=== PATIENT | female | born 1950 | race Hispanic/Latino ===

== ENCOUNTER 2018-03-06 07:23 | Day surgery (SDC) | payer OTHER ==
--- OUTSIDE RECORDS SUMMARY | 2018-03-06 07:27 | XMS REPORT ---
:1950 Author Organization [employer] Care Team Providers Name Role Phone Tomasz Dahl Provider Role Unavailable Allergies, Adverse Reactions, Alerts Substance Reaction Event Type N.K.D.A. 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
[2018-03-06] MEDS ORDERED: Ringers Lactate 1,000 ML IV ONE (07:34)
[2018-03-06] MEDS ORDERED: PROPOFOL 200 MG/20 ML VIAL IV ONE (08:25)
[2018-03-06] MEDS ORDERED: LIDOCAINE 1% MPF 5 ML VIAL ONE (08:25)
--- NOTE | 2018-03-06 08:57 | ENDO RPT ---
[address], [address] COLONOSCOPY PROCEDURE REPORT EXAM DATE: 03/06/2018 PATIENT NAME: Lori Grady MR #: [id number] BIRTHDATE: 1950 ATTENDING: Tomasz Dahl DR STATUS: outpatient [employer] INSPECTOR: Skylar Valdes RN and Edinson Alexis [facility] INDICATIONS: The patient is a 67 yr old Female here for a colonoscopy due to colon cancer screening PROCEDURE PERFORMED: Colonoscopy with biopsy - cold polypectomy MEDICATIONS: Per Anesthesia. ESTIMATED BLOOD LOSS: None CONSENT: The patient understands the risks and benefits of the procedure and understands that these risks include, but are not limited to: sedation, allergic reaction, infection, perforation and/or bleeding. Alternative means of evaluation and treatment include, among others: physical exam, x-rays, and/or surgical intervention. The patient elects to proceed with this endoscopic procedure. DESCRIPTION OF PROCEDURE: During intra-op preparation period all mechanical medical equipment was checked for proper function. Hand hygiene and appropriate measures for infection prevention was taken. Procedure, possible complications, alternatives including, but not limited to possibility of bleeding, perforation, tear, infection, sepsis, need for surgery, need for blood transfusion, were explained to the patient. After the risks, benefits and alternatives of the procedure were thoroughly explained, Informed consent was verified, confirmed and timeout was successfully executed by the treatment team. The patient was placed in the left lateral position. A digital rectal exam was performed and revealed internal hemorrhoids. After appropriate level of anesthesia, the scope was passed. The [id number] ([id number]) endoscope was introduced through the anus and advanced to the cecum, which was identified by both the appendix and ileocecal valve. The quality of the prep was fair. The instrument was then slowly withdrawn as the colon was fully examined. Scope withdrawal time was 9 minutes. COLON FINDINGS: Mild diverticulosis was noted in the sigmoid colon and left colon. No bleeding was noted from the diverticulosis. A diminutive smooth sessile polyp was found in the sigmoid colon. A biopsy was performed using cold forceps. Sample was obtained and sent to histology. Small internal hemorrhoids were found. Retroflexed views revealed no abnormalities. The scope was then completely withdrawn from the patient and the procedure terminated. ADVERSE EVENTS: There were no complications. IMPRESSIONS: 1. Mild diverticulosis was noted in the sigmoid colon and left colon 2. Diminutive sessile polyp was found in the sigmoid colon; biopsy was performed using cold forceps 3. Small internal hemorrhoids RECOMMENDATIONS: 1. avoid NSAIDS for 2 weeks 2. await biopsy results 3. follow-up: office 2 week(s) 4. yearly hemoccult starting in 4 years 5. low fiber / diverticular diet RECALL: Return in 5 year(s) for Colonoscopy, pending biopsy results. Tomasz Dahl DR eSigned: Tomasz Dahl DR 03/06/2018 8:57 AM cc: CPT CODES: ICD9 CODES: PATIENT NAME: Mitch saraLori aquino MR#: [id number]
== END 2018-03-06 09:42 | disposition home or self-care (01) ==
LOC: OR 07:23
PROVIDERS: ATTEND Surgery
PROC: 0DBN8ZX Excision of Sigmoid Colon, Via Natural or Artificial Opening Endoscopic, Diagnostic (ICD-10-PCS; principal; 2018-03-06 08:30)
DX: Z12.11 Encounter for screening for malignant neoplasm of colon (principal); K63.5 Polyp of colon; K57.30 Diverticulosis of large intestine without perforation or abscess without bleeding; K64.8 Other hemorrhoids; E78.5 Hyperlipidemia, unspecified; K21.9 Gastro-esophageal reflux disease without esophagitis; M19.90 Unspecified osteoarthritis, unspecified site; E78.2 Mixed hyperlipidemia; N32.81 Overactive bladder; F32.9 Major depressive disorder, single episode, unspecified; Z90.49 Acquired absence of other specified parts of digestive tract; Z80.41 Family history of malignant neoplasm of ovary; Z83.3 Family history of diabetes mellitus
CPT/HCPCS: 88305

== ENCOUNTER 2022-11-01 12:47 | Emergency (ER) | payer OTHER ==
--- OUTSIDE RECORDS SUMMARY | 2022-11-01 12:51 | XMS REPORT | Continuity of Care Document ---
:1950 Author Organization [facility] t Address [address] [place] [address] [address] [place] [address] Care Team Providers Name Role Phone Sarwat Riddle Attending Clinician Unavailable Payers Payer Name Policy Type Policy Number Effective Date Expiration Date S ource MEDICARE MB [id number] 2015 [facility] NOVITAS 00:00:00 [facility] [employer] C1 [id number] 2019 [facility] [place] ing Medicare 00:00:00 [facility] Problems Condition Condition Condition Status Onset Resolution Last Treating Co mments Source Name Details Category Date Date Treatment Clinician Date Incontinen Urinary Problem Comm on ce of incontinen [facility] urine ce, - [facility] Overactive Overactive Problem C ommon bladder bladder [facility] [id number] Menopausal Problem Co mmon flushing [facility] [id number] Current Problem 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 is without [facility] fracture [id number] Adult BMI Problem Com mon 35.0-35.9 Spirit kg/sq [facility] [id number] Vitamin D Problem Comm on deficiency [facility] disease [facility] Allergies, Adverse Reactions, Alerts This patient has no known allergies or adverse reactions. Social History Social Habit Start Date Stop Date Quantity Comments Source History of Tobacco Use Co mmon [facility] Sex Assigned At Com mon [facility] Smoking Status Start Date Stop Date Source Never Smoker Common [facility] Medications Ordered Filled Start Stop Current Ordering Indication Dosage Frequency Signature Comments Components Source Medication Medication Date Date Medication? Clinician (SIG) Name Name Aron Sharp 0 No Common 3-11 Spirit 00:00: - [facility] Prolia Prolia 2020-0 No Common 3-11 [facility] 00:00: - [facility] Prolia Prolia 2020-0 No Common 3-11 [facility] 00:00: - [facility] Prolia Prolia 2020-0 No Common 3-11 Spirit 00:00: - [facility] Prolia Prolia 2020-0 No Common 3-11 Spirit 00:00: - [facility] Prolia Prolia 2020-0 No Common 3-11 Spirit 00:00: - [facility] Prolia Prolia 2020-0 No Common 3-11 Spirit 00:00: - [facility] Prolia Prolia 2020-0 No 60mg Common 07-26 Spirit 00:00: - [facility] Prolia Prolia 2020-0 No 60mg Common 07-26 Spirit 00:00: - [facility] Prolia Prolia 2020-0 No 60mg Common 07-26 Spirit 00:00: - [facility] Prolia Prolia 2020-0 No 60mg Common 07-26 Spirit 00:00: - [facility] 00 [facility] Prolia Prolia 2020-0 No 60mg Common 07-26 Spirit 00:00: - [facility] 00 [facility] Prolia Prolia 2020-0 No 60mg Common 07-26 [facility] 00:00: - [facility] 00 [facility] Prolia Prolia 2020-0 No 60mg Common 07-26 [facility] 00:00: - [facility] 00 [facility] Trazodone Trazodone 2020-0 Yes Sarwat 1 tablet Common HCl HCl 02-23 Riddle at bedtime [facility] 00:00: - [facility] 00 [facility] Prolia Prolia 2020-0 No 60mg Common 01-19 Spirit 00:00: - [facility] 00 [facility] Prolia Prolia 2020-0 No 60mg Common 01-19 Spirit 00:00: - [facility] 00 [facility] Prolia Prolia 2020-0 No 60mg Common 01-19 Spirit 00:00: - [facility] Prolia Prolia 2020-0 No 60mg Common 01-19 Spirit 00:00: - [facility] 00 [facility] Prolia Prolia 2020-0 No 60mg Common 01-19 Spirit 00:00: - [facility] 00 [facility] Prolia Prolia 2020-0 No 60mg Common 01-19 Spirit 00:00: - [facility] 00 [facility] Prolia Prolia 2020-0 No 60mg Common 01-19 [facility] 00:00: - [facility] 00 [facility] Vitamin D3 Vitamin D3 2020-0 2020- No Sarwat 1 capsule Common 12-16 Riddle [facility] 00:00: 00:00 - [facility]I 00 :00 [facility] Prolia Prolia 2019-0 No 60mg Common 07-22 Spirit 00:00: - [facility] 00 [facility] Prolia Prolia 2019-0 No 60mg Common 07-22 Spirit 00:00: - [facility] 00 [facility] Prolia Prolia 2019-0 No 60mg Common 07-22 Spirit 00:00: - [facility] 00 [facility] Prolia Prolia 2019-0 No 60mg Common 07-22 Spirit 00:00: - [facility] 00 [facility] Prolia Prolia 2019-0 No 60mg Common 07-22 Spirit 00:00: - [facility] 00 [facility] Prolia Prolia 2019-0 No 60mg Common 07-22 00:00: - [facility] Prolia Prolia 2019-0 No 60mg Common 07-22 00:00: - [facility] Kenalog Kenalog 2019-0 No 40mg Common (Triamcinol (Triamcinol 7-18 S pirit one) one) 00:00: - [facility] Kenalog Kenalog 2019-0 No 40mg Common (Triamcinol (Triamcinol 7-18 S pirit one) one) 00:00: - [facility] Kennoris Kenalog 2019-0 No 40mg Common (Triamcinol (Triamcinol 7-18 S pirit one) one) 00:00: - [facility] Kennoris Kenalog 2019-0 No 40mg Common (Triamcinol (Triamcinol 7-18 S pirit one) one) 00:00: - [facility] Kennoris Kenalog 2019-0 No 40mg Common (Triamcinol (Triamcinol 7-18 S pirit one) one) 00:00: - [facility] Kennoris Kenalog 2019-0 No 40mg [facility] (Triamcinol (Triamcinol 7-18 S pirit one) one) 00:00: - [facility] Kennoris Kenalog 2019-0 No 40mg Common (Triamcinol (Triamcinol 7-18 S pirit one) one) 00:00: - [facility] Prolia Prolia 2019-0 Yes Sarwat 60 mg Common 03-18 Riddle [facility] 00:00: - [facility] Zoloft Zoloft Yes Asrwat 1 tablet Commo n Riddle [facility] Calcium 500 Calcium 500 Yes Sarwat 1 tablet Common + D + D Riddle with food [facility] Fish Oil Fish Oil Yes Sarwat not Commo n Riddle defined Spirit [facility] Prolia 60 Prolia 60 No MG/ML MG/ML Vitamin B Vitamin B No Complex Complex Vitamin D3 Vitamin D3 No 1{capsu 09132 UNIT 30917 UNIT le} Zoloft 100 Zoloft 100 No MG MG Sertraline Sertraline No HCl 100 MG HCl 100 MG Fish Oil Fish Oil No Tumersaid Tumersaid No Calcium 500 Calcium 500 No 1{table QD + D 500-125 + D 500-125 t_with_ MG-UNIT MG-UNIT food} traZODone traZODone No 1{table QD HCl 50 MG HCl 50 MG t_at_be dtime} Zoloft 100 Zoloft 100 No 1{table QD MG MG t} traZODone traZODone No HCl 50 MG HCl 50 MG traZODone traZODone No traZODone HCl 50 MG HCl 50 MG HCl 50 MG Prolia 60 Prolia 60 No Prolia 60 MG/ML MG/ML MG/ML Vitamin D3 Vitamin D3 No 1{capsu Vitamin D3 87407 UNIT 10196 UNIT le} 44187 UNIT traZODone traZODone No 1{table QD traZODone HCl 50 MG HCl 50 MG t_at_be HCl 50 MG dtime} Calcium 500 Calcium 500 No 1{table QD Calcium + D 500-125 + D 500-125 t_with_ 500 + D MG-UNIT MG-UNIT food} 500-125 MG-UNIT Zoloft 100 Zoloft 100 No 1{table QD Zoloft 100 MG MG t} MG Fish Oil Fish Oil No Fish Oil Zoloft 100 Zoloft 100 No Zoloft 100 MG MG MG Sertraline Sertraline No Sertraline HCl 100 MG HCl 100 MG HCl 100 MG Tumersaid Tumersaid No Tumersaid Vitamin B Vitamin B No Vitamin B Complex Complex Complex traZODone traZODone No traZODone HCl 50 MG HCl 50 MG HCl 50 MG Prolia 60 Prolia 60 No Prolia 60 MG/ML MG/ML MG/ML Vitamin D3 Vitamin D3 No 1{capsu Vitamin D3 50543 UNIT 27533 UNIT le} 66736 UNIT traZODone traZODone No 1{table QD traZODone HCl 50 MG HCl 50 MG t_at_be HCl 50 MG dtime} Calcium 500 Calcium 500 No 1{table QD Calcium + D 500-125 + D 500-125 t_with_ 500 + D MG-UNIT MG-UNIT food} 500-125 MG-UNIT Zoloft 100 Zoloft 100 No 1{table QD Zoloft 100 MG MG t} MG Fish Oil Fish Oil No Fish Oil Zoloft 100 Zoloft 100 No Zoloft 100 MG MG MG Sertraline Sertraline No Sertraline HCl 100 MG HCl 100 MG HCl 100 MG Tumersaid Tumersaid No Tumersaid Vitamin B Vitamin B No Vitamin B Complex Complex Complex traZODone traZODone No traZODone HCl 50 MG HCl 50 MG HCl 50 MG Prolia 60 Prolia 60 No Prolia 60 MG/ML MG/ML MG/ML Vitamin D3 Vitamin D3 No 1{capsu Vitamin D3 56262 UNIT 86980 UNIT le} 42278 UNIT traZODone traZODone No 1{table QD traZODone HCl 50 MG HCl 50 MG t_at_be HCl 50 MG dtime} Calcium 500 Calcium 500 No 1{table QD Calcium + D 500-125 + D 500-125 t_with_ 500 + D MG-UNIT MG-UNIT food} 500-125 MG-UNIT Zoloft 100 Zoloft 100 No 1{table QD Zoloft 100 MG MG t} MG Fish Oil Fish Oil No Fish Oil Zoloft 100 Zoloft 100 No Zoloft 100 MG MG MG Sertraline Sertraline No Sertraline HCl 100 MG HCl 100 MG HCl 100 MG Tumersaid Tumersaid No Tumersaid Vitamin B Vitamin B No Vitamin B Complex Complex Complex traZODone traZODone No 1{table QD traZODone HCl 50 MG HCl 50 MG t_at_be HCl 50 MG dtime} Sertraline Sertraline No Sertraline HCl 100 MG HCl 100 MG HCl 100 MG Fish Oil Fish Oil No Fish Oil Zoloft 100 Zoloft 100 No 1{table QD Zoloft 100 MG MG t} MG Calcium 500 Calcium 500 No 1{table QD Calcium + D 500-125 + D 500-125 t_with_ 500 + D MG-UNIT MG-UNIT food} 500-125 MG-UNIT Zoloft 100 Zoloft 100 No Zoloft 100 MG MG MG traZODone traZODone No traZODone HCl 50 MG HCl 50 MG HCl 50 MG Vitamin B Vitamin B No Vitamin B Complex Complex Complex Vitamin D3 Vitamin D3 No 1{capsu Vitamin D3 89899 UNIT 86993 UNIT le} 68438 UNIT Prolia 60 Prolia 60 No Prolia 60 MG/ML MG/ML MG/ML Tumersaid Tumersaid No Tumersaid traZODone traZODone No 1{table QD traZODone HCl 50 MG HCl 50 MG t_at_be HCl 50 MG dtime} Sertraline Sertraline No Sertraline HCl 100 MG HCl 100 MG HCl 100 MG Fish Oil Fish Oil No Fish Oil Zoloft 100 Zoloft 100 No 1{table QD Zoloft 100 MG MG t} MG Calcium 500 Calcium 500 No 1{table QD Calcium + D 500-125 + D 500-125 t_with_ 500 + D MG-UNIT MG-UNIT food} 500-125 MG-UNIT Zoloft 100 Zoloft 100 No Zoloft 100 MG MG MG traZODone traZODone No traZODone HCl 50 MG HCl 50 MG HCl 50 MG Vitamin B Vitamin B No Vitamin B Complex Complex Complex Vitamin D3 Vitamin D3 No 1{capsu Vitamin D3 32041 UNIT 03090 UNIT le} 50472 UNIT Prolia 60 Prolia 60 No Prolia 60 MG/ML MG/ML MG/ML Tumersaid Tumersaid No Tumersaid Vitamin D3 Vitamin D3 No 1{capsu Vitamin D3 86595 UNIT 65394 UNIT le} 34880 UNIT Fish Oil Fish Oil No Fish Oil traZODone traZODone No traZODone HCl 50 MG HCl 50 MG HCl 50 MG Calcium 500 Calcium 500 No 1{table QD Calcium + D 500-125 + D 500-125 t_with_ 500 + D MG-UNIT MG-UNIT food} 500-125 MG-UNIT Zoloft 100 Zoloft 100 No Zoloft 100 MG MG MG Zoloft 100 Zoloft 100 No 1{table QD Zoloft 100 MG MG t} MG Vitamin B Vitamin B No Vitamin B Complex Complex Complex Sertraline Sertraline No Sertraline HCl 100 MG HCl 100 MG HCl 100 MG Prolia 60 Prolia 60 No Prolia 60 MG/ML MG/ML MG/ML Tumersaid Tumersaid No Tumersaid Sertraline Sertraline No Sertraline HCl 100 MG HCl 100 MG HCl 100 MG Vitamin D3 Vitamin D3 No 1{capsu Vitamin D3 75969 UNIT 41385 UNIT le} 80457 UNIT traZODone traZODone No 1{table QD traZODone HCl 50 MG HCl 50 MG t_at_be HCl 50 MG dtime} Prolia 60 Prolia 60 No Prolia 60 MG/ML MG/ML MG/ML Vitamin B Vitamin B No Vitamin B Complex Complex Complex Zoloft 100 Zoloft 100 No 1{table QD Zoloft 100 MG MG t} MG Fish Oil Fish Oil No Fish Oil Zoloft 100 Zoloft 100 No Zoloft 100 MG MG MG traZODone traZODone No traZODone HCl 50 MG HCl 50 MG HCl 50 MG Tumersaid Tumersaid No Tumersaid Calcium 500 Calcium 500 No 1{table QD Calcium + D 500-125 + D 500-125 t_with_ 500 + D MG-UNIT MG-UNIT food} 500-125 MG-UNIT Calcium 500 Calcium 500 No 1{table QD Calcium + D 500-125 + D 500-125 t_with_ 500 + D MG-UNIT MG-UNIT food} 500-125 MG-UNIT Vitamin B Vitamin B No Vitamin B Complex Complex Complex Fish Oil Fish Oil No Fish Oil Vitamin D3 Vitamin D3 No 1{capsu Vitamin D3 17926 UNIT 92900 UNIT le} 86235 UNIT Zoloft 100 Zoloft 100 No Zoloft 100 MG MG MG traZODone traZODone No 1{table QD traZODone HCl 50 MG HCl 50 MG t_at_be HCl 50 MG dtime} Zoloft 100 Zoloft 100 No 1{table QD Zoloft 100 MG MG t} MG Prolia 60 Prolia 60 No Prolia 60 MG/ML MG/ML MG/ML traZODone traZODone No traZODone HCl 50 MG HCl 50 MG HCl 50 MG Tumersaid Tumersaid No Tumersaid Calcium 500 Calcium 500 No 1{table QD Calcium + D 500-125 + D 500-125 t_with_ 500 + D MG-UNIT MG-UNIT food} 500-125 MG-UNIT Fish Oil Fish Oil No Fish Oil Vitamin D3 Vitamin D3 No 1{capsu Vitamin D3 96795 UNIT 11723 UNIT le} 78595 UNIT Zoloft 100 Zoloft 100 No Zoloft 100 MG MG MG Vitamin B Vitamin B No Vitamin B Complex Complex Complex Sertraline Sertraline No Sertraline HCl 100 MG HCl 100 MG HCl 100 MG Prolia 60 Prolia 60 No Prolia 60 MG/ML MG/ML MG/ML traZODone traZODone No traZODone HCl 50 MG HCl 50 MG HCl 50 MG Tumersaid Tumersaid No Tumersaid Immunizations Ordered Immunization Filled Immunization Date Status Commen ts Source Name Name Aron Sharp 2021-01-25 Completed [facility] 14:43:00 [facility] Aron Sharp 2020-07-26 Completed [facility] 13:30:00 [facility] Aron Sharp 2020-01-20 Completed [facility] 14:23:00 [facility] Aron Sharp 2019-07-22 Completed [facility] 14:47:00 [facility] Kenalog Kenalog 2019-06-03 Completed [facility] (Triamcinolone) (Triamcinolone) 11:31:00 [facility] Prevnar 13 Prevnar 2018-12-17 Completed [facility] -Pneumonia Vaccine -Pneumonia Vaccine 10:54:00 [facility] Prevnar 13 Prevnar 2018-12-17 Completed [facility] -Pneumonia Vaccine -Pneumonia Vaccine 10:54:00 [facility] Prevnar 13 Prevnar 13 2018-12-17 Completed [facility] -Pneumonia Vaccine -Pneumonia Vaccine 10:54:00 [facility] Prevnar 13 Prevnar 13 2018-12-17 Completed [facility] -Pneumonia Vaccine -Pneumonia Vaccine 10:54:00 [facility] Prevnar 13 Prevnar 13 2018-12-17 Completed [facility] -Pneumonia Vaccine -Pneumonia Vaccine 10:54:00 [facility] Prevnar 13 Prevnar 13 2018-12-17 Completed [facility] -Pneumonia Vaccine -Pneumonia Vaccine 10:54:00 [facility] Prevnar 13 Prevnar 13 2018-12-17 Completed [facility] -Pneumonia Vaccine -Pneumonia Vaccine 10:54:00 [facility] Prevnar 13 Prevnar 13 2018-12-17 Completed [facility] -Pneumonia Vaccine -Pneumonia Vaccine 10:54:00 [facility] Prevnar 13 Prevnar 13 2018-12-17 Completed [facility] -Pneumonia Vaccine -Pneumonia Vaccine 10:54:00 [facility] Prevnar 13 Prevnar 13 2018-12-17 Completed [facility] -Pneumonia Vaccine -Pneumonia Vaccine 10:54:00 [facility] Prevnar 13 Prevnar 2018-12-17 Completed [facility] -Pneumonia Vaccine -Pneumonia Vaccine 00:00:00 - [facility] Zostavax Zostavax 2018-01-27 Completed [facility] 10:49:00 - [facility] Zostavax Zostavax 2018-01-27 Completed [facility] 10:49:00 - [facility] Zostavax Zostavax 2018-01-27 Completed [facility] 10:49:00 - [facility] Zostavax Zostavax 2018-01-27 Completed [facility] 10:49:00 - [facility] Zostavax Zostavax 2018-01-27 Completed [facility] 10:49:00 - [facility] Zostavax Zostavax 2018-01-27 Completed [facility] 10:49:00 - [facility] Zostavax Zostavax 2018-01-27 Completed [facility] 10:49:00 - [facility] Zostavax Zostavax 2018-01-27 Completed [facility] 10:49:00 - [facility] Zostavax Zostavax 2018-01-27 Completed [facility] 10:49:00 - [facility] Zostavax Zostavax 2018-01-27 Completed [facility] 10:49:00 [facility] Vital Signs Vital Name Observation Time Observation Value Comments Source height 2022-10-15 09:40:00 61 [in_i] [facility] weight 2022-10-15 09:40:00 180.7 [lb_av] [facility] temperature 2022-10-15 09:40:00 97.6 [degF] [facility] bmi 2022-10-15 09:40:00 34.14 kg/m2 [facility] oximetry 2022-10-15 09:40:00 97 % [facility] respiratory rate 2022-10-15 09:40:00 17 /min Comm on [facility] blood pressure 2022-10-15 09:40:00 116 mm[Hg] [facility] systolic [facility] blood pressure 2022-10-15 09:40:00 67 mm[Hg] [facility] - diastolic [facility] height 2022-06-12 09:10:00 61 [in_i] Common [facility] weight 2022-06-12 09:10:00 181.2 [lb_av] Common [facility] temperature 2022-06-12 09:10:00 97.7 [degF] Common [facility] bmi 2022-06-12 09:10:00 34.23 kg/m2 Common [facility] oximetry 2022-06-12 09:10:00 97 % Common [facility] respiratory rate 2022-06-12 09:10:00 17 /min Comm on [facility] blood pressure 2022-06-12 09:10:00 119 mm[Hg] Common [facility] - systolic [facility] blood pressure 2022-06-12 09:10:00 57 mm[Hg] [facility] - diastolic [facility] height 2022-01-30 09:00:00 61 [in_i] Common [facility] weight 2022-01-30 09:00:00 183.0 [lb_av] [facility] temperature 2022-01-30 09:00:00 97.3 [degF] Common [facility] bmi 2022-01-30 09:00:00 34.57 kg/m2 Common [facility] oximetry 2022-01-30 09:00:00 96 % Common [facility] respiratory rate 2022-01-30 09:00:00 16 /min Comm on [facility] blood pressure 2022-01-30 09:00:00 124 mm[Hg] Common [facility] - systolic [facility] blood pressure 2022-01-30 09:00:00 59 mm[Hg] Common [facility] - diastolic [facility] height 2022-01-30 10:00:00 61 [in_i] Common [facility] weight 2022-01-30 10:00:00 183 [lb_av] Common [facility] temperature 2022-01-30 10:00:00 97.3 [degF] Common [facility] bmi 2022-01-30 10:00:00 34.57 kg/m2 Common [facility] oximetry 2022-01-30 10:00:00 96 % Common [facility] respiratory rate 2022-01-30 10:00:00 16 /min Comm on [facility] blood pressure 2022-01-30 10:00:00 124 mm[Hg] Common [facility] systolic [facility] blood pressure 2022-01-30 10:00:00 59 mm[Hg] Common [facility] diastolic [facility] height 2021-07-09 11:40:00 61 [in_i] Common [facility] weight 2021-07-09 11:40:00 184.8 [lb_av] Common [facility] temperature 2021-07-09 11:40:00 97.5 [degF] Common [facility] bmi 2021-07-09 11:40:00 34.91 kg/m2 [facility] oximetry 2021-07-09 11:40:00 96 % [facility] respiratory rate 2021-07-09 11:40:00 17 /min Comm on [facility] blood pressure 2021-07-09 11:40:00 134 mm[Hg] Common [facility] systolic [facility] blood pressure 2021-07-09 11:40:00 63 mm[Hg] Common [facility] diastolic [facility] Procedures This patient has no known procedures. Encounters Start End Encounter Admission Attending Care Care Encounter Source Date/Time Date/Time Type Type Clinicians Facility Department ID 2022-10-14 [id number] 15:01:00 [facility] [id number] [facility] 2022-05-31 Outpatient Riddle, STLML[facility] ST[facility] Common 13:56:00 Sarwat [facility] 2021-12-17 Outpatient Riddle, STLMLC ST[facility] Common 11:25:00 Sarwat [facility] 2021-12-12 Outpatient Riddle, STLMLC ST[facility]C Common 12:40:43 Sarwat [facility] 2021-12-12 Outpatient Riddle, STLMLC ST[facility]C Common 12:39:13 Sarwat [facility] 2021-12-12 Outpatient Riddle, STLMLC ST[facility]C Common 12:33:54 Sarwat [facility] 2021-12-12 Outpatient Riddle, STLMLC STL[facility]C Common 11:40:56 Sarwat [id number] [facility] 2021-12-12 Outpatient Riddle, STLMLC STL[facility]C Common 11:23:14 Sarwat [id number] [facility] 2021-12-12 Outpatient Riddle, STLMLC ST[facility]C Common 11:12:13 Sarwat [id number] [facility] 2021-12-12 Outpatient Riddle, STLMLC ST[facility] Common 11:04:30 Sarwat [id number] [facility] 2021-12-12 Outpatient Riddle, STLMLC ST[facility]C Common 11:03:32 Sarwat [id number] [facility] 2022-10-15 2022-10-15 OFFICE STLMLC STLMLC [id number] Co mmon 00:00:00 00:00:00 VISIT [facility] 4 [facility] 2022-09-13 2022-09-13 (TEL) STLMLC STLMLC [id number] Co mmon 00:00:00 00:00:00 [facility] 2022-06-12 2022-06-12 OFFICE STLMLC STLMLC [id number] Co mmon 00:00:00 00:00:00 VISIT [facility] ESTAB PT - CHI LEVEL 4 [facility] 2022-06-12 2022-06-12 (TEL) STLMLC STLMLC [id number] Co mmon 00:00:00 00:00:00 [facility] 2022-01-30 2022-01-30 OFFICE STLMLC STLMLC [id number] Co mmon 00:00:00 00:00:00 VISIT [facility] PT - CHI LEVEL 4 [facility] 2022-01-30 2022-01-30 SUB ANNUAL STLMLC STLMLC [id number] Common 00:00:00 00:00:00 MCR [facility] - [facility] VISIT [facility] 2022-01-21 2022-01-21 (TEL) STLMLC STLMLC [id number] Co mmon 00:00:00 00:00:00 [facility] 2021-12-17 2021-12-17 (TEL) STLMLC STLMLC [id number] Co mmon 00:00:00 00:00:00 [facility] 2021-12-17 2021-12-17 (TEL) STLMLC STLMLC [id number] Co mmon 00:00:00 00:00:00 [facility] 2021-07-09 2021-07-09 OFFICE STLMLC STLMLC [id number] Co mmon 00:00:00 00:00:00 VISIT [facility] PT - CHI LEVEL [address] [place] [address] 2021-05-15 2021-05-15 Outpatient STLMLC STLMLC [id number] Common 00:00:00 00:00:00 [facility] 2021-01-25 2021-01-25 Outpatient STLMLC STLMLC [id number] Common 00:00:00 00:00:00 [facility] 2021-01-23 2021-01-23 Outpatient STLMLC STLMLC [id number] Common 00:00:00 00:00:00 [facility] 2021-01-15 2021-01-15 Outpatient STLMLC STL[facility] [id number] Common 00:00:00 00:00:00 [facility] 2021-01-15 2021-01-15 Outpatient STLMLC STL[facility] [id number] Common 00:00:00 00:00:00 [facility] 2020-10-16 2020-10-16 Outpatient STLMLC STL[facility]C [id number] Common 00:00:00 00:00:00 [facility] 2020-07-26 2020-07-26 [id number] [facility] 13:30:00 13:30:00 [place] [address] [facility] 2020-07-17 2020-07-17 [facility] [id number] Common 14:00:00 14:00:00 [place] [address] [facility] 2020-04-13 2020-04-13 [facility] [id number] Common 13:15:00 13:15:00 [place] [address] [facility] 2020-02-24 2020-02-24 [facility] [id number] Common 16:00:00 16:00:00 [place] [address] [facility] 2020-02-22 2020-02-22 [facility] [id number] Common 16:35:00 16:35:00 [place] [address] [facility] 2020-01-20 2020-01-20 [facility] [id number] Common 14:00:00 14:00:00 [place] [address] Spir it [address] [facility] 2019-12-16 2019-12-16 [facility] [id number] Common 15:45:00 15:45:00 [place] [address] [facility] 2019-09-16 2019-09-16 [facility] [id number] Common 10:30:00 10:30:00 [place] [address] [facility] 2019-07-22 2019-07-22 [facility] [id number] Common 15:00:00 15:00:00 [place] [address] [facility] 2019-06-17 2019-06-17 [facility] [id number] Common 11:15:00 11:15:00 [place] [address] [facility] 2019-06-03 2019-06-03 [facility] [id number] Common 11:15:00 11:15:00 [place] [address] [facility] 2019-04-07 2019-04-07 [facility] [id number] Common 10:51:00 10:51:00 [place] [address] [facility] 2019-03-18 2019-03-18 [facility] [id number] Common 13:15:00 13:15:00 [place] [address] [facility] 2018-12-17 2018-12-17 [facility] [id number] Common 08:45:00 08:45:00 [place] [address] [facility] 2018-08-12 2018-08-12 [facility] [id number] Common 11:15:00 11:15:00 [place] [address] [facility] 2018-05-21 2018-05-21 [facility] [id number] Common 14:00:00 14:00:00 t Specialty/[facility] [place] [facility] 2018-05-11 2018-05-11 [facility] [id number] Common 10:15:00 10:15:00 [place] [address] [facility] 2018-03-17 2018-03-17 [facility] [id number] Common 12:13:00 12:13:00 [place] [address] [facility] 2018-02-17 2018-02-17 [facility] [id number] Common 10:00:00 10:00:00 t Specialty/[facility] [place] Special[facility] - [facility] Results This patient has no known results.
[2022-11-01 13:44] LABS: Absolute Lymphocytes (CBC) 2.7 K/uL (0.7-4.9); Hematocrit 36.8 % (36.0-45.0); Lymphocytes % 41.3 % (15.3-44.8); MCV 93.5 fL (80-100); MPV 6.9 fL (7.6-11.3); RBC Red Blood Cell Count 3.93 M/uL (3.86-4.86)
[2022-11-01 14:02] LABS: Albumin 3.8 g/dL (3.4-5.0); Bilirubin Total 0.4 mg/dL (0.2-1.0); Potassium 3.9 mmol/L (3.5-5.1); Protein, Total 7.3 g/dL (6.4-8.2)
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
[2022-11-01] MEDS ORDERED: CYCLOBENZAPRINE 10 MG TAB ONE (14:37)
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
[2022-11-01 16:22] VITALS: TEMP 98.9; O2SAT 98
[2022-11-01 16:29] VITALS: BP 126/59
== END 2022-11-01 16:04 | disposition home or self-care (01) ==
LOC: ER 12:47
DX: R07.9 Chest pain, unspecified (principal); M54.2 Cervicalgia; V49.40XA Driver injured in collision with unspecified motor vehicles in traffic accident, initial encounter
CPT/HCPCS: 85025; 36415; 80053; 70450; 72125; 71260; 74177; 73030; 99284; Q9967